=== PATIENT | female | born 1945 | race Caucasian/White ===

== ENCOUNTER 2017-02-07 15:47 | Inpatient (IN) ==
[2017-02-07 18:04] LABS: ALLEN TEST YES; BE 4.9 mmoll (-3.0-3.0); BLOOD TYPE ARTERIAL; DRAW SITE L RADIAL; METHB 1.4 % (0.0-1.5); MODALITY CANNULA; O2(CT) 13.2 mL/dL (15.0-23.0); PCO2(98.6) 41 mmHg (35-45); PO2(98.6) 60 mmHg (60-100); SAMPLE BLOOD; SAO2 96.5 % (95.0-100.0); THB 10.1 g/dL (11.5-17.4); pH(98.6) 7.46 (7.35-7.45)
[2017-02-07 18:22] LABS: MANUAL DIFF NEEDED? NO
[2017-02-07 18:26] LABS: BASO% 0.2 % (0.0-0.8); EOS# 0.01 X1000 (0.0-0.7); EOS% 0.1 % (0.0-10.0); HEMATOCRIT 29.6 % (37.0-47.0); HEMOGLOBIN 9.8 g/dL (12.0-16.0); IMM GRAN# 0.04 X1000 (0.0-0.04); IMM GRAN% 0.3 % (0.0-0.5); LYMPH# 1.53 X1000 (1.2-3.4); LYMPH% 12.8 % (20.5-51.1); MCHC 33.1 g/dL (33-37); MCV 87.6 FL (81-99); MONO# 1.23 X1000 (0.11-0.59); MONO% 10.3 % (1.7-9.3); MPV 9.5 FL (7.4-10.4); NEUT% 76.3 % (42.2-75.2); PLT 357 X1000 (130-400); RBC 3.38 XMIL (4.2-5.4)
[2017-02-07 18:36] LABS: PROTIME 10.5 Seconds (9.2-11.7); PTT 28.9 Seconds (22.0-36.0)
--- NOTE | 2017-02-07 18:45 | Diag Imaging Result Doc PS360 ---
CT THORAX/ABD/PELVIS W/O CONT - 02/07/2017 INDICATION: Chest pain with hx of lung cancer TECHNIQUE: A CT dose reduction protocol was used. COMPARISON: 08/26/2016 FINDINGS: CHEST: There is significant enlargement in size of the left hilar mass. This now measures 4.6 x 4.1 cm. There is significant infiltrate throughout the left upper lobe, the appearance is suggestive of lymph angitic spread of tumor. There is no significant change in the left lower lobe nodule. There is a new small to moderate left pleural effusion with some adjacent atelectasis. There is pulmonary vascular congestion throughout the lungs diffusely with some thickened interlobular septae suggesting early pulmonary edema. There are tiny nonspecific infiltrates in the anterior and posterior right lung base. There has apparently been previous right upper lobectomy. Heart size is normal with no significant pericardial effusion. There is enlargement of a few moderate sized, nonspecific paratracheal lymph nodes. Bones are intact. Abdomen pelvis: There is moderate constipation. No bowel obstruction or inflammation. There is significant diverticulosis of the sigmoid colon. Stable benign-appearing left renal cyst. No radiodense renal stones. No hydronephrosis or hydroureter. No masses or adenopathy. There are moderate degenerative changes of the spine. No acute or suspicious bony lesion. IMPRESSION: 1. Severe enlargement of the left hilar mass. Infiltrate/tumor spread throughout the left upper lobe. Small to moderate left pleural effusion. Stable left lower lobe pulmonary nodule. Atelectasis at the left lower lobe. 2. Pulmonary vascular congestion throughout the lungs. 3. Small patchy infiltrates at the right lung base, nonspecific. 4. Constipation. Diverticulosis coli. No acute abnormality in the abdomen or pelvis. Electronically signed by Ross Hernandez 02/07/2017 6:43 PM
[2017-02-07 18:50] LABS: AGAP 9; ALBUMIN 3.5 g/dL (3.5-5.0); ALKALINE PHOSPHATASE 89 U/L (32-104); BUN 13 mg/dL (8-22); CALCIUM 9.4 mg/dL (8.8-10.2); CHLORIDE 88 mmol/L (98-107); CK PROFILE 40 U/L (24-173); COSMO 251; GOT 28 U/L (10-30); GPT 22 U/L (10-36); POTASSIUM 4.2 mmol/L (3.5-5.1); SODIUM 124 mmol/L (136-145); TCO2 27 mmol/L (25-35); TOTAL BILIRUBIN 0.32 mg/dL (0.20-1.00)
[2017-02-07 18:57] LABS: URINE MICRO REVIEW NEEDED? NO; URINE SOURCE CATH
[2017-02-07 19:00] LABS: BILIRUBIN URINE NEGATIVE (NEGATIVE); BLOOD URINE SMALL (NEGATIVE); COLOR YELLOW; GLUCOSE URINE NEGATIVE (NEGATIVE); LEUKOCYTES URINE SMALL (NEGATIVE); NITRITE URINE NEGATIVE (NEGATIVE); PH URINE 6.5; PROTEIN URINE NEGATIVE (NEGATIVE); SP GRAVITY URINE 1.006; TURBIDITY URINE CLEAR (CLEAR); UR EPITHELIAL CELLS <10 /HPF (<10); URINE BACTERIA 3+ /HPF; URINE CULTURE NEEDED? YES; URINE RBC <10 /HPF (<10); URINE WBC <10 /HPF (<10); UROBILINOGEN URINE NORMAL (NORMAL)
[2017-02-07] MEDS ORDERED: DUONEB (A & A) INH ONE (19:53)
[2017-02-07] MEDS ORDERED: VANCOMYCIN 1 GM/NS 1 GM/250 ML IVPB IV ONE (19:54)
[2017-02-07] MEDS ORDERED: ZOSYN 4.5 GM in NS 100 ML IV SCH (20:00)
[2017-02-07] MEDS ORDERED: LASIX IV ONE (21:29)
[2017-02-07] MEDS ORDERED: SOLU-CORTEF IV ONE (21:30)
[2017-02-07] MEDS: DUONEB (A & A) INH SCH (23:22)
[2017-02-07] MEDS: NS 1,000 ML IV SCH (23:30)
[2017-02-07] MEDS: DOXYCYCLINE 100 MG in NS 250 ML IV SCH (23:30)
[2017-02-07] MEDS: OXYCONTIN PO SCH (23:30)
[2017-02-07] MEDS: KLONOPIN PO SCH (23:33)
[2017-02-07] MEDS: DESYREL PO SCH (23:33)
[2017-02-07] MEDS: LOVENOX SUBQ SCH (23:33)
[2017-02-08] MEDS: PROZAC PO SCH ×2 (01:04→22:36)
[2017-02-08] MEDS: DUONEB (A & A) INH SCH ×6 (03:49→22:55)
[2017-02-08 06:53] LABS: EOS# 0.01 X1000 (0.0-0.7); EOS% 0.1 % (0.0-10.0); HEMATOCRIT 29.8 % (37.0-47.0); HEMOGLOBIN 9.7 g/dL (12.0-16.0); IMM GRAN# 0.03 X1000 (0.0-0.04); IMM GRAN% 0.3 % (0.0-0.5); LYMPH# 0.85 X1000 (1.2-3.4); MANUAL DIFF NEEDED? NO; MCHC 32.6 g/dL (33-37); MONO# 0.62 X1000 (0.11-0.59); MONO% 5.9 % (1.7-9.3); MPV 9.7 FL (7.4-10.4); NEUT% 85.7 % (42.2-75.2); PLT 344 X1000 (130-400); RBC 3.35 XMIL (4.2-5.4)
[2017-02-08] MEDS ORDERED: PRILOSEC PO SCH (07:00)
[2017-02-08 07:21] LABS: AGAP 16; BUN 12 mg/dL (8-22); CALCIUM 9.1 mg/dL (8.8-10.2); CHLORIDE 92 mmol/L (98-107); COSMO 271; POTASSIUM 3.5 mmol/L (3.5-5.1); SODIUM 133 mmol/L (136-145); TCO2 25 mmol/L (25-35)
[2017-02-08] MEDS: SYNTHROID PO SCH (08:26)
[2017-02-08] MEDS: ADALAT CC PO SCH (08:26)
[2017-02-08] MEDS: PLETAL PO SCH (08:26)
[2017-02-08] MEDS: OXYCONTIN PO SCH ×2 (08:26→22:36)
[2017-02-08] MEDS: SOLU-MEDROL IV SCH ×2 (08:27→16:02)
[2017-02-08] MEDS: KLONOPIN PO SCH ×2 (08:27→22:35)
[2017-02-08] MEDS: ROCEPHIN 1 GM in NS 50 ML IV SCH (08:27)
[2017-02-08] MEDS: RESTASIS 0.05% OPH DROPS BOTH EYES SCH (08:27)
[2017-02-08] MEDS: SYSTANE EYE DROPS BOTH EYES SCH (08:45)
[2017-02-08 11:45] LABS: AGAP 17; BUN 12 mg/dL (8-22); CALCIUM 8.9 mg/dL (8.8-10.2); CHLORIDE 90 mmol/L (98-107); COSMO 268; POTASSIUM 3.4 mmol/L (3.5-5.1); SODIUM 131 mmol/L (136-145); TCO2 24 mmol/L (25-35)
[2017-02-08] MEDS: PROTONIX IV SCH (11:48)
[2017-02-08] MEDS: DOXYCYCLINE 100 MG in NS 250 ML IV SCH ×2 (11:49→22:35)
[2017-02-08] MEDS: SODIUM CHLORIDE 0.9% INJ SCH (11:49)
[2017-02-08] MEDS: MIRALAX PO SCH (11:49)
[2017-02-08] MEDS: NS 1,000 ML IV SCH (16:03)
[2017-02-08 20:56] LABS: AGAP 14; BUN 15 mg/dL (8-22); CALCIUM 9.2 mg/dL (8.8-10.2); CHLORIDE 91 mmol/L (98-107); COSMO 265; SODIUM 127 mmol/L (136-145); TCO2 22 mmol/L (25-35)
[2017-02-08] MEDS: DESYREL PO SCH (22:36)
[2017-02-08] MEDS: LOVENOX SUBQ SCH (22:38)
[2017-02-09] MEDS: PERCOCET-10 PO PRN ×2 (00:08→13:40)
[2017-02-09] MEDS: SOLU-MEDROL IV SCH ×3 (00:31→17:32)
[2017-02-09 01:10] LABS: AGAP 19; BUN 14 mg/dL (8-22); CALCIUM 9.4 mg/dL (8.8-10.2); CHLORIDE 91 mmol/L (98-107); COSMO 271; POTASSIUM 3.1 mmol/L (3.5-5.1); SODIUM 131 mmol/L (136-145); TCO2 21 mmol/L (25-35)
[2017-02-09] MEDS: DUONEB (A & A) INH SCH ×6 (03:34→23:25)
[2017-02-09] MEDS: SYNTHROID PO SCH (06:19)
[2017-02-09] MEDS: NS 1,000 ML IV SCH (06:19)
[2017-02-09] MEDS ORDERED: KLOR-CON PO ONE (07:15)
[2017-02-09] MEDS: SODIUM CHLORIDE 0.9% INJ SCH (08:53)
[2017-02-09] MEDS: MIRALAX PO SCH (08:54)
[2017-02-09] MEDS: PROTONIX IV SCH (08:54)
[2017-02-09] MEDS: ROCEPHIN 1 GM in NS 50 ML IV SCH (08:54)
[2017-02-09] MEDS: ADALAT CC PO SCH (08:55)
[2017-02-09] MEDS: RESTASIS 0.05% OPH DROPS BOTH EYES SCH (08:55)
[2017-02-09] MEDS: PLETAL PO SCH (08:55)
[2017-02-09] MEDS: SYSTANE EYE DROPS BOTH EYES SCH (08:56)
[2017-02-09] MEDS: OXYCONTIN PO SCH ×2 (09:50→21:56)
[2017-02-09] MEDS: KLONOPIN PO SCH ×2 (09:50→21:56)
[2017-02-09] MEDS: DOXYCYCLINE 100 MG in NS 250 ML IV SCH ×2 (10:35→21:57)
[2017-02-09] MEDS: DESYREL PO SCH (21:56)
[2017-02-09] MEDS: LOVENOX SUBQ SCH (21:56)
[2017-02-09] MEDS: PROZAC PO SCH (21:57)
[2017-02-10] MEDS: PERCOCET-10 PO PRN ×3 (01:28→21:24)
[2017-02-10] MEDS: SOLU-MEDROL IV SCH ×3 (01:28→18:30)
[2017-02-10] MEDS: DUONEB (A & A) INH SCH ×6 (03:10→23:30)
[2017-02-10] MEDS: NS 1,000 ML IV SCH ×2 (05:01→18:30)
[2017-02-10 05:16] LABS: ALLEN TEST YES; BE 3.6 mmoll (-3.0-3.0); BLOOD TYPE ARTERIAL; DRAW SITE R RADIAL; METHB 1.3 % (0.0-1.5); O2(CT) 15.1 mL/dL (15.0-23.0); PCO2(98.6) 39 mmHg (35-45); PO2(98.6) 62 mmHg (60-100); SAMPLE BLOOD; THB 11.6 g/dL (11.5-17.4); pH(98.6) 7.46 (7.35-7.45)
[2017-02-10 05:18] LABS: MODALITY CANNULA
--- NOTE | 2017-02-10 06:22 | EKG Report ---
Test Performed on : 02/07/2017 4:07:35 PM Test Reason : sob Blood Pressure : / mmHG Vent. Rate : 116 BPM Atrial Rate : 116 BPM P-R Int : 136 ms QRS Dur : 086 ms QT Int : 308 ms P-R-T Axes : 034 081 135 degrees QTc Int : [address] \T\ T wave abnormality, consider lateral ischemia Abnormal ECG When compared with ECG of 06-NOV-2016 15:24, QRS axis shifted right Nonspecific T wave abnormality, improved in Anterior leads T wave inversion now evident in Lateral leads Unconfirmed Result
[2017-02-10] MEDS: SYNTHROID PO SCH (06:47)
[2017-02-10 07:23] LABS: BASO% 0.1 % (0.0-0.8); HEMOGLOBIN 9.4 g/dL (12.0-16.0); IMM GRAN# 0.11 X1000 (0.0-0.04); IMM GRAN% 0.6 % (0.0-0.5); LYMPH% 6.3 % (20.5-51.1); MANUAL DIFF NEEDED? YES; MCH 28.7 PG (27-31); MCHC 32.4 g/dL (33-37); MCV 88.4 FL (81-99); MONO# 0.63 X1000 (0.11-0.59); MONO% 3.6 % (1.7-9.3); MPV 9.3 FL (7.4-10.4); NEUT% 89.4 % (42.2-75.2); PLT 454 X1000 (130-400); RBC 3.28 XMIL (4.2-5.4)
[2017-02-10 07:37] LABS: BANDS 2 % (0-1); HYPOCHROM 1+; LYMPHS 10 % (21-51); MONO 4 % (1-9)
[2017-02-10] MEDS ORDERED: KLOR-CON PO ONE (07:54)
[2017-02-10 07:56] LABS: AGAP 12; BUN 11 mg/dL (8-22); CALCIUM 9.3 mg/dL (8.8-10.2); CHLORIDE 100 mmol/L (98-107); COSMO 276; SODIUM 137 mmol/L (136-145); TCO2 25 mmol/L (25-35)
[2017-02-10] MEDS: ROCEPHIN 1 GM in NS 50 ML IV SCH (09:06)
[2017-02-10] MEDS: SYSTANE EYE DROPS BOTH EYES SCH (09:08)
[2017-02-10] MEDS: PROTONIX IV SCH (09:08)
[2017-02-10] MEDS: ADALAT CC PO SCH (09:08)
[2017-02-10] MEDS: PLETAL PO SCH (09:08)
[2017-02-10] MEDS: SODIUM CHLORIDE 0.9% INJ SCH (09:08)
[2017-02-10] MEDS: MIRALAX PO SCH (09:08)
[2017-02-10] MEDS: KLONOPIN PO SCH ×2 (09:22→23:19)
[2017-02-10] MEDS: OXYCONTIN PO SCH ×2 (09:22→23:19)
[2017-02-10] MEDS: DOXYCYCLINE 100 MG in NS 250 ML IV SCH ×2 (10:28→23:20)
--- NOTE | 2017-02-10 11:54 | Diag Imaging Result Doc PS360 ---
EXAM: CHEST-2 VIEWS HISTORY: hypoxia TECHNIQUE: Two views COMPARISON: 02/02/2015 FINDINGS: There are increased interstitial markings in the mid and lower lungs. Sutures are found in the lateral right lung. The heart is not enlarged. No right-sided pleural effusion although there is a small left-sided pleural effusion. Small nodule in the lower left lung is unchanged. Masslike area in the upper right lung has been removed. There is right apical pleural thickening. IMPRESSION: 1.Interval surgery since the prior exam 2.Development of nodular infiltrates in the mid and lower lungs 3.Stable nodule in the lower left lung Electronically signed by Saad Forrest 02/10/2017 11:52 AM
[2017-02-10] MEDS: RESTASIS 0.05% OPH DROPS BOTH EYES SCH (12:50)
[2017-02-10] MEDS: PROZAC PO SCH (23:19)
[2017-02-10] MEDS: DESYREL PO SCH (23:19)
[2017-02-10] MEDS: LOVENOX SUBQ SCH (23:20)
[2017-02-11] MEDS: SOLU-MEDROL IV SCH ×3 (01:34→17:11)
[2017-02-11] MEDS: DUONEB (A & A) INH SCH ×6 (03:02→23:36)
[2017-02-11] MEDS: PERCOCET-10 PO PRN ×2 (04:37→17:11)
--- NOTE | 2017-02-11 05:22 | EKG Report ---
Test Performed on : 02/10/2017 11:34:16 PM Test Reason : increased HR Blood Pressure : / mmHG Vent. Rate : 138 BPM Atrial Rate : 138 BPM P-R Int : 140 ms QRS Dur : 092 ms QT Int : 262 ms P-R-T Axes : 025 -17 138 degrees QTc Int : 396 ms Sinus tachycardia. with occasional premature ventricular complexes. ST \T\ T wave abnormality, consider lateral ischemia Abnormal ECG When compared with ECG of 07-FEB-2017 16:07, premature ventricular complexes. are now present Questionable change in QRS axis Non-specific change in ST segment in Inferior leads T wave inversion less evident in Lateral leads Confirmed by Colt ERAZO, [place] ([id number]) on 02/12/2017 7:49:55 AM
[2017-02-11] MEDS: SYNTHROID PO SCH (06:16)
[2017-02-11] MEDS: NS 1,000 ML IV SCH ×2 (09:02→09:05)
[2017-02-11] MEDS: ROCEPHIN 1 GM in NS 50 ML IV SCH (09:02)
[2017-02-11] MEDS: ADALAT CC PO SCH (09:03)
[2017-02-11] MEDS: PROTONIX IV SCH (09:03)
[2017-02-11] MEDS: SODIUM CHLORIDE 0.9% INJ SCH (09:03)
[2017-02-11] MEDS: KLONOPIN PO SCH ×2 (09:03→21:04)
[2017-02-11] MEDS: OXYCONTIN PO SCH ×2 (09:04→21:03)
[2017-02-11] MEDS: SYSTANE EYE DROPS BOTH EYES SCH (09:04)
[2017-02-11] MEDS: MIRALAX PO SCH (09:04)
[2017-02-11] MEDS: PLETAL PO SCH (09:04)
[2017-02-11] MEDS: DOXYCYCLINE 100 MG in NS 250 ML IV SCH ×3 (11:52→21:05)
[2017-02-11] MEDS: RESTASIS 0.05% OPH DROPS BOTH EYES SCH (16:42)
[2017-02-11] MEDS: DESYREL PO SCH (21:04)
[2017-02-11] MEDS: PROZAC PO SCH (21:04)
[2017-02-11] MEDS: LOVENOX SUBQ SCH (21:05)
[2017-02-12] MEDS: SOLU-MEDROL IV SCH ×2 (00:47→09:31)
[2017-02-12] MEDS: PERCOCET-10 PO PRN (03:51)
[2017-02-12 05:19] VITALS: BP 130/74
[2017-02-12] MEDS: SYNTHROID PO SCH (06:18)
[2017-02-12] MEDS: DUONEB (A & A) INH SCH (07:35)
[2017-02-12] MEDS: OXYCONTIN PO SCH (09:30)
[2017-02-12] MEDS: PLETAL PO SCH (09:30)
[2017-02-12] MEDS: ROCEPHIN 1 GM in NS 50 ML IV SCH (09:31)
[2017-02-12] MEDS: RESTASIS 0.05% OPH DROPS BOTH EYES SCH (09:31)
[2017-02-12] MEDS: MIRALAX PO SCH (09:31)
[2017-02-12] MEDS: SYSTANE EYE DROPS BOTH EYES SCH (09:31)
[2017-02-12] MEDS: KLONOPIN PO SCH (09:31)
[2017-02-12] MEDS: ADALAT CC PO SCH (09:31)
[2017-02-12] MEDS: PROTONIX IV SCH (09:31)
[2017-02-12] MEDS: DOXYCYCLINE 100 MG in NS 250 ML IV SCH (09:32)
== END 2017-02-12 13:38 | disposition home or self-care (01) ==
LOC: ED 15:47 → SUATTDRO 21:15 → 3N 21:15 → SUPCPDRO 21:15
PROVIDERS: ADMIT Internal Medicine; ATTEND Internal Medicine